=== PATIENT | female | born 1990 | race Caucasian/White ===

== ENCOUNTER 2023-01-27 05:52 | Emergency (ER) | payer MEDICAID ==
[~2023-01-27] VITALS: Ht 175.3 cm; Wt 168.2 kg
[2023-01-27 06:19] VITALS: TEMP 96
[2023-01-27 06:52] LABS: BASOPHILS % (AUTO) 0.5 % (0-1); EOSINOPHILS # (AUTO) 0.2 X10'3 (0-0.9); EOSINOPHILS % (AUTO) 3.2 % (0-6); HEMATOCRIT 44.1 % (35.0-45.0); HEMOGLOBIN 14.4 g/dl (12.0-16.0); LYMPHOCYTES # (AUTO) 1.4 X10'3 (1.1-4.8); MEAN CORPUSCULAR HEMOGLOBIN 28.9 PG (27.0-31.0); MEAN CORPUSCULAR HGB CONC 32.8 g/dL (33.0-36.5); MEAN CORPUSCULAR VOLUME 88.2 FL (78-98); MEAN PLATELET VOLUME 9.8 FL (7.4-10.4); MONOCYTES # (AUTO) 0.4 X10'3 (0-0.9); MONOCYTES % (AUTO) 5.6 % (2-12); NEUTROPHILS # (AUTO) 5.3 X10'3 (1.8-7.7); NEUTROPHILS % (AUTO) 71.7 % (42-75); PLATELET COUNT 276 X10'3 (140-440); RED CELL DISTRIBUTION WIDTH 13.7 % (11.5-14.5); WHITE BLOOD COUNT 7.3 X10'3 (4.5-11.0)
[2023-01-27 07:00] LABS: ALANINE AMINOTRANSFERASE 43 U/L (12-78); ALBUMIN 4.1 G/DL (3.4-5.0); ALBUMIN/GLOBULIN RATIO 1.1 (1.1-1.5); ALKALINE PHOSPHATASE 63 IU/L (46-116); ANION GAP 9 (8-16); BILIRUBIN,TOTAL 0.7 MG/DL (0.1-1.0); BLOOD UREA NITROGEN 13 MG/DL (7-18); CALCIUM 8.7 MG/DL (8.5-10.1); CHLORIDE 103 MMOL/L (99-107); CREATININE 0.93 MG/DL (0.40-0.90); GLUCOSE 123 MG/DL (70-104); LIPASE 56 U/L (73-393); SODIUM 139 MMOL/L (135-145); TOTAL CARBON DIOXIDE 26.6 MMOL/L (24-32); eCRCL 91 ML/MIN; eGFR 70 ML/MIN
[2023-01-27 07:03] LABS: ASPARTATE AMINO TRANSFERASE 32 U/L (10-37); POTASSIUM 4.4 MMOL/L (3.5-5.1)
[2023-01-27] MEDS ORDERED: ondansetron/PF 4mg/2ml inj IV ONE (07:05)
[2023-01-27] MEDS ORDERED: ringers solution, lacted 1,000 ML IV ONE (07:05)
--- NOTE | 2023-01-27 07:37 | NUR ---
PT TAKEN TO XRAY
[2023-01-27 07:56] LABS: BILIRUBIN,URINE NEGATIVE (Neg); CLARITY,URINE SLIGHTLY CLOUDY (Clear); COLOR,URINE YELLOW (Yellow); GLUCOSE, URINE NEGATIVE (Neg); KETONES,URINE NEGATIVE (Neg); LEUKOCYTE ESTERASE ,URINE NEGATIVE (Neg); NITRITES, URINE NEGATIVE (Neg); OCCULT BLOOD,URINE LARGE (Neg); PROTEIN,URINE NEGATIVE (Neg); UROBILINOGEN,URINE 0.2 E.U/dL (0.2-1.0)
[2023-01-27 07:58] LABS: URINE HCG NEGATIVE (NEG)
[2023-01-27 07:59] LABS: UA COLLECTION TYPE CLN CATCH MIDSTREAM
[2023-01-27 08:04] LABS: BACTERIA,URINE FEW /HPF (Neg); MUCUS STRANDS MODERATE /LPF (Neg); RBC,URINE 50-100 /HPF (0-2); SQUAMOUS EPITHELIAL CELL,UR MODERATE /LPF (FEW); WBC,URINE 0-4 /HPF (0-4)
[2023-01-27] MEDS ORDERED: ketorolac trometh. 30mg/ml inj. IV ONE (08:05)
[2023-01-27] MEDS ORDERED: FLO0.4C PO (09:12)
[2023-01-27] MEDS ORDERED: HYDR-3965 PO (09:12)
[2023-01-27] MEDS ORDERED: CIPR-259 PO (09:14)
[2023-01-27 09:38] VITALS: BP 156/98; PULSE 67; RESP 19; O2SAT 99
== END 2023-01-27 09:46 | disposition home or self-care (01) ==
LOC: ER 05:53
DX: N20.0 Calculus of kidney (principal); N39.0 Urinary tract infection, site not specified; R10.11 Right upper quadrant pain; R11.2 Nausea with vomiting, unspecified
CPT/HCPCS: 36415; 74018; 74176; 80053; 81001; 81025; 83690; 85025; 96361; 96374; 96375; 99285; J1885; J2405; J7120

== ENCOUNTER 2023-06-17 09:40 | Emergency (ER) | payer MEDICAID ==
[~2023-06-17] VITALS: Ht 175.3 cm; Wt 180.8 kg
[2023-06-17 10:10] VITALS: BP 149/95; PULSE 90; RESP 16; TEMP 98.4; O2SAT 96
[2023-06-17] MEDS ORDERED: CLIN300C3 PO (12:16)
== END 2023-06-17 12:36 | disposition home or self-care (01) ==
LOC: ER 09:41
DX: K02.9 Dental caries, unspecified (principal); K08.89 Other specified disorders of teeth and supporting structures; E03.9 Hypothyroidism, unspecified
CPT/HCPCS: 99283

== ENCOUNTER 2023-09-13 08:10 | Day surgery (SDC) | payer MEDICAID ==
[2023-09-13] VITALS (7 sets, daily range): BP systolic 113–148; BP diastolic 65–87; PULSE 75–85; RESP 16; TEMP 98.3; O2SAT 94–97
[~2023-09-13] VITALS: Ht 175.3 cm; Wt 183.6 kg
[2023-09-13] MEDS ORDERED: NO HOME MEDS (08:47)
== END 2023-09-13 11:10 | disposition home or self-care (01) ==
LOC: SSTAY O 08:10
PROVIDERS: ATTEND Nurse Practitioner Family
DX: E04.1 Nontoxic single thyroid nodule (principal)
CPT/HCPCS: 10005; 60100; 76942